=== PATIENT | female | born 1990 | race Caucasian/White ===

== ENCOUNTER 2021-04-28 13:18 | Outpatient (CLI) | payer BC, SELFPAY ==
[2021-04-28 14:13] LABS: hCG Titer Quant., Serum 401 mIU/mL (1-3)
== END 2021-04-28 23:59 | disposition short-term general hospital (02) ==
LOC: PAVLAB 13:23
PROVIDERS: PCP Nurse Practitioner Primary Care; Referring Provider Obstetrics & Gynecology; Visit Provider Obstetrics & Gynecology
DX: N91.2 Amenorrhea, unspecified (principal)
CPT/HCPCS: 36415; 84702; 86850; 86900; 86901

== ENCOUNTER 2021-04-30 11:48 | Outpatient (CLI) | payer BC, SELFPAY ==
[2021-04-30 12:58] LABS: hCG Titer Quant., Serum 836 mIU/mL (1-3)
== END 2021-04-30 23:59 | disposition short-term general hospital (02) ==
LOC: LAB 11:49
PROVIDERS: PCP Nurse Practitioner Primary Care; Referring Provider Obstetrics & Gynecology; Visit Provider Obstetrics & Gynecology
DX: N91.2 Amenorrhea, unspecified (principal)
CPT/HCPCS: 36415; 84702

== ENCOUNTER 2021-05-03 10:12 | Day surgery (SDC) | payer BC, SELFPAY ==
[2021-05-03] VITALS (7 sets, daily range): BP systolic 115–137; BP diastolic 56–96; PULSE 74–107; RESP 16–18; TEMP 35.8–36.4; O2SAT 91–100
--- NOTE | 2021-05-03 10:29 | US_ITS ---
STUDY: FIRST TRIMESTER OBSTETRICAL ULTRASOUND REASON FOR EXAM: Female, 30 years old LT SIDED PAIN -- QUANT 836 - DRAWN LAST WEEK. REPEATED TODAY -NOT RESULTED AT THIS TIME LMP: 03/17/2021. TECHNIQUE: Transvaginal TECHNICAL QUALITY: Adequate. PRIOR ULTRASOUND: None. FINDINGS: There is no demonstrated intrauterine gestational sac. There is no demonstrated yolk sac. The placenta is non-visualized. There is no demonstrated embryo ( pole). The estimated gestation age (EGA) by LMP is 6 weeks, 5 days. The estimated date of delivery (PLACIDO) by LMP is 12/22/2021.. The uterus measures 6.5 cm x 5 cm x 4.3 cm. There is no demonstrated uterine fibroid. The cervix is closed. The right ovary measures 3.4 cm x 1.7 cm x 3.8 cm. A dominant follicle is seen measuring 1.8 cm x 1.8 cm x 1.7 cm. There is no visualized right adnexal mass or complex lesion. The left ovary measures 3.4 cm x 3.1 cm x 2.6 cm. Vision 1.8 cm x 2 cm x 1.7 cm ringlike cyst with thick margins. An ectopic should be ruled out. There is no visualized left adnexal mass or complex lesion. There is no fluid in the cul de sac. US/Transvaginal w/Preg US IMPRESSION: No intrauterine gestation is seen. Findings suggestive of a left ectopic . Electronically Signed: Moisés Munoz MD at 11:13 EST , Service support ,
[2021-05-03 11:20] LABS: hCG Titer Quant., Serum 974 mIU/mL (1-3)
[2021-05-03] MEDS: Lactated Ringers 1,000 ML 100 ML IV ×2 (13:35→15:15)
[2021-05-03 13:38] LABS: Hematocrit 39.8 % (37-47); Hemoglobin 12.6 g/dL (12.0-15.0); Mean Corp Hgb Conc 31.7 g/dL (32-36); Mean Corpuscular Hgb 28.2 pg (27.0-32.0); Mean Platelet Vol. 9.5 fl (6.2-12.0); Platelet Count 262 K/mm3 (150-450); RBC Distribution Width CV 12.3 % (11.6-14.6); RBC Distribution Width SD 40.2 fl (35.1-43.9); Red Blood Count 4.47 M/mm3 (4.2-5.4); White Blood Count 9.6 K/mm3 (4.4-11.0)
--- NOTE | 2021-05-03 14:00 | FAL_PTH ---
PATIENT: TRES QUINONEZ LOC: [facility] [place] U#:[id number] AGE/SX: 30/F ROOM: RE05/03/[address]: Dr. Ade Lainez MD : 1990 BED: DIS: 05/03/2021 SPEC #: [id number] RECD: 05/04/21 09:37 STATUS: JON DAVID #: [id number] SEBASTIAN: 05/03/21 14:[address]: Ade Lainez DEPT: SURGICAL PATHOLOGY RECD BY: Xavier Anderson ENTERED: 05/04/21 11:06 SP TYPE: ECTOPIC OTHR DR: Sonia Green, ALISIA Tissues: ECTOPIC PREG Procedures: Surgery Specimen Level IV HEADER OPERATION: Laparoscopic removal ectopic PRE-OP DIAGNOSIS: Ectopic TISSUE SUBMITTED: Left fallopian tube and ectopic MICROSCOPIC DIAGNOSIS Fallopian tube and ectopic, salpingectomy: Fallopian tube and blood clots with decidua and immature chorionic villi (ectopic ). JEANETTE:judith 05/05/2021 MICROSCOPIC DESCRIPTION Slides are reviewed. GROSS DESCRIPTION Received in fixative is one container labeled with the patient's name and designated left fallopian tube and ectopic. The specimen consists of a fallopian tube in two pieces measuring 7.5 cm in length and up to 1 cm in diameter. The fimbrial end is identified. The portion of fallopian tube proximal to the fimbrial end is dilated and congested and measures up to 1.5 cm in greatest dimension. Also present in the container are multiple blood clots measuring in aggregate 3 x 1.5 x 0.5 cm. The entire specimen is submitted in four cassettes. Cassette 4 contains the blood clots. / JEANETTE:judith 05/04/2021 TC:5 CPT: 36158
--- NOTE | 2021-05-03 14:48 | PCM.HP.STD ---
HPI - General HPI Narrative TRES QUINONEZ, is a 30 F who presents with early bleeding and abnormally rising quants. on ultrasound evaluation there is suspicion for ectopic , no free fluid. patient has some nausea and vomiting no fevers, pain is on the lower left side, intermittent cramping and sharp shooting not relieved with OTC meds. PFSH Home Medications prenat vit-iron [id number] [Prena-Cap] 1 cap PO DAILY 05/03/21 [History Last Taken Unknown] Allergy/AdvReac Type Severity Reaction Status Date / Time acetaminophen Allergy Mild unknown Verified 05/03/21 13:06 [From Darvocet-N] azithromycin Allergy Mild Vomiting Verified 05/03/21 13:06 [From Zithromax Z-Guzman] propoxyphene Allergy Mild unknown Verified 05/03/21 13:06 [From Darvocet-N] sulfacetamide Allergy Unknown Other Verified 05/03/21 13:06 Family History (Updated 04/08/21 @ 09:58 by Itzel Bess) Grandmother Colon cancer Diabetes x2 Grandfather Cancer Other Endometriosis Epilepsy Surgical History H/O wrist surgery History of surgery on left wrist S/P arthroscopy of left shoulder Social History (Updated 04/08/21 @ 09:58 by Itzel Bess) household members: spouse Smoking Status: Never smoker second hand exposure: No alcohol intake: current alcohol intake frequency: holidays/special occasions only substance use type: does not use caffeine: Yes what type of physical activity do you participate in: walking seatbelt use: always do you feel safe at home: Yes additional social history: -Tristin URENA Review of Systems ROS Unobtainable: due to mental status and other Constitutional Constitutional: Reports systems reviewed and no addt'l complaints, except as documented; Denies as per HPI, change in weight, fatigue, fever(s), malaise, weakness or other Eyes Eyes: Reports systems reviewed and no addt'l complaints, except as documented; Denies as per HPI, change in vision or other ENT HEENT: Reports as per HPI and dizziness; Denies dry mouth, headache(s), loss taste/smell, nasal congestion, nasal discharge, neck pain, sore throat or other Respiratory/Chest Respiratory/Chest: Reports systems reviewed and no addt'l complaints, except as documented Gastrointestinal Gastrointestinal: Reports systems reviewed and no addt'l complaints, except as documented and nausea; Denies vomiting Musculoskeletal Musculoskeletal: Reports systems reviewed and no addt'l complaints, except as documented; Denies back pain or joint pain Neurologic Neurologic: Reports systems reviewed and no addt'l complaints, except as documented Psychiatric Psychiatric: Reports systems reviewed and no addt'l complaints, except as documented Endocrine Endocrinology: Reports systems reviewed and no addt'l complaints, except as documented Hematologic/Lymphatic Hematologic/Lymphatic: Reports systems reviewed and no addt'l complaints, except as documented Vital Signs Vital Signs Vital Signs: 05/03/21 13:27 Temperature 97.1 F L Temperature Source Temporal Pulse Rate 107 H Respiratory Rate 17 Respiratory Pattern Normal Blood Pressure 137/96 H Blood Pressure Mean 109 Blood Pressure Source Monitor Blood Pressure Position Semi-Fowlers Blood Pressure Location Left Arm Pulse Ox 100 Oxygen Delivery Method Room Air Weight Weight: 267 lb 6.731 oz Physical Exam Const alert, oriented x3 and no apparent distress HEENT normocephalic Head and Scalp: atraumatic Eyes EOMs intact bilaterally and conjunctivae normal Neck full ROM, no lymphadenopathy, supple and thyroid normal General: trachea midline Lymph Lymphatic: no lymphadenopathy noted Resp normal respiratory effort, no retractions, no use of accessory muscles and clear to auscultation bilaterally Cardio regular rhythm GI normal to inspection, nondistended, normoactive bowel sounds, soft to palpation, non-distended and no masses Inspection: Negative for abdominal distention Palpation: tender Back/Spine no CVA tenderness Extremity normal to inspection Skin no rashes or lesions noted Neuro moves all extremities and deep tendon reflexes 2+ bilaterally Motor Exam: clonus absent Psych mental status grossly normal Results Lab / Micro Data Result Diagrams: 05/03/21 13:24 Labs: Laboratory Results - last 24 hr 05/03/21 10:25: HCG, Quant 974 H 05/03/21 13:24: WBC 9.6, RBC 4.47, Hgb 12.6, Hct 39.8, MCV 89.0, MCH 28.2, MCHC 31.7 L, RDW Std Deviation 40.2, RDW Coeff of Anju 12.3, Plt Count 262, MPV 9.5 05/03/21 13:24: Blood Type A POSITIVE, Antibody Screen NEGATIVE Micro: Microbiology 05/03/21 13:15 Nasal Secretion SARS-CoV-2 Antigen (Rapid) - Final Radiology Impression Obstetrics Ultrasound 05/03/21 10:29 IMPRESSION: No intrauterine gestation is seen. Findings suggestive of a left ectopic . Electronically Signed: Moisés Munoz MD at 11:13 EST , Service support , Assessment & Plan Assessment/Plan (1) Ectopic : PLAN: After discussing the patient's diagnosis and treatment plan options, patient wishes to proceed with surgical management. I have discussed with the patient the risks, benefits, and alternatives of the procedure which include but are not limited to risks of anesthesia, bleeding, infection, possible damage to bowel, bladder, or surrounding vasculature which could lead to additional surgery to evaluate any complications. Patient agrees to procedure and wishes to proceed. ACOG/uptodate references given for additional information regarding procedure. Charges/Coding Visit Charges Office Visits / Consults: 35456 OV L5 Est (modifier for seen same day and decision made for surgery same day.)
--- NOTE | 2021-05-03 14:51 | OP.PCM_ITS ---
Problems Associated Problem List Diagnoses (1) Ectopic : Report of Operation Pre-Operative Diagnosis: see problem list Post-Operative Diagnosis: same Surgery/Procedure Performed:: laparoscopic left salpingectomy Description of Surgical Findings:: ruptured ectopic Type of Anesthesia: General and Local Specimen's removed: tube and ectopic Drains: none Estimated Blood Loss (mL): 150 Fluids Replaced: crystalloid Description of Procedure: Patient was taken in the operating room and was placed under general anesthesia was prepped and draped in normal sterile fashion in the dorsal lithotomy position. Bladder was drained of clear urine and SCDs were on preoperatively. Uterus was sounded and a uterine manipulator was placed after dilating. Attention was then paid to the abdominal portion of the procedure and the umbilicus was elevated with towel clamps and injected with Marcaine and after a 12 mm incision was made and the Veress needle was entered into the abdomen confirmed to be intra-abdominal with a low opening pressure of less than 5 mmHg. Abdomen was insufflated with CO2 gas and a 5 mm optical trocar was placed under direct visualization. A 5 mm port was placed in the right and left lower quadrant ports under direct visualization. Uterus was well visualized and there is noted to be a left ruptured ectopic coming from the left fallopian tube. Blood and clot were seen in the cul-de-sac. salpingostomy afte r injecting with vasopressin diluted was attempted but due to ectopic remnant in the tube and the abnormal appearance of the tube, salpingectomy was decided. Fallopian tube was elevated and mesosalpinx transected and abnormal portion of the fallopian tube and were removed without complication and then placed in a bag and removed through the left 5 mm port site. Liver and upper abdomen were visualized notably within normal limits and no other gross abnormalities were seen in the abdomen. All instruments removed from the abdomen after gas was desufflated. All port sites were closed with 3-0 Monocryl Steri's and op sites were applied. All instruments removed from the vagina and patient was awoken and taken recovery in stable condition. Grafts/Implants Used: none Complications none Admit VTE Documentation VTE Present on Admission: No VTE Mechan Device Prophylaxis: SCD's Procedures Urinary/Genital [id number]: 91243 Treat ectopic lapro w/ salpingectomy
--- NOTE | 2021-05-03 14:54 | DCINST_ITS ---
Discharge Instructions Diet Discharge Diet: No restrictions Activity Discharge Activity: Return to Normal Activity, May Not Drive (for 2 weeks or while taking narcotic pain meds.), May Shower and May Take a Tub Bath (in 7 days) May resume sexual activity in: 1 week Weight Bearing Status: Full weight bearing Dressing / Incision Call your doctor if your incision/area has: Continuous Slow Oozing, Sudden Increased Bleeding, Increased Pain/ Swelling, Increased Redness and Foul Smelling Discharge Call your doctor if you observe: Fever of 101 or Higher, Using more than 1 pad per hour, Shortness of breath, Chest pain and Uncontrolled pain Suture Line Care: Avoid Pulling/Pushing and Avoid Pinching/Bending Remove Dressing in: 1 week (if present) Cleanse incision/area with: Soap & Water and Keep Dressing Clean & Dry Follow Up Care When: Call to make an appointment with your doctor for a fu/incision check in 1- 2 weeks. Test Results: Test results from this visit will be discussed in further detail at your follow-up appointment, if applicable. Discharge Plan Admission Attending Provider: Ade Lainez Primary Care Provider: Sonia Green NP Discharge Orders/Prescriptions Prescriptions: New oxycodone-acetaminophen [Percocet] 5-325 mg tablet 1 tab PO Q6H PRN (Reason: pain) 7 Days Qty: 20 RF: 0 naproxen [naproxen] 500 MG tablet 500 mg PO BID PRN PRN (Reason: Pain) Qty: 30 RF: 1 No Action Prena-Cap 95-1-50 mg Capsule 1 cap PO DAILY RF: 0 Referrals / Follow Up: Sonia Green NP, SENIOR PROCUREMENT MANAGER-C [Primary Care Provider] -
[2021-05-03] MEDS: Bupivacaine 0.25% 30 ML Vial (15:00)
[2021-05-03] MEDS: Vasopressin 20 UNITS/ML Vial (15:30)
== END 2021-05-03 23:59 | disposition home or self-care (01) ==
LOC: OPUS 12:11 → SDC 12:16 → AC 12:46
PROVIDERS: PCP Nurse Practitioner Primary Care; Referring Provider Obstetrics & Gynecology; Visit Provider Obstetrics & Gynecology
PROC: 10T24ZZ Resection of Products of Conception, Ectopic, Percutaneous Endoscopic Approach (ICD-10-PCS; CPT 59150; principal; 2021-05-03 13:45)
DX: O00.102 Left tubal pregnancy without intrauterine pregnancy (principal)
CPT/HCPCS: 59151; 00840; 36415; 76817; 84702; 85027; 86850; 86900; 86901; 87426; 88305; J7120; J2405; Q9968

== ENCOUNTER → 2021-10-31 | Outpatient (CLI) | payer BC, SELFPAY ==
[2021-10-31 11:55] LABS: hCG Titer Quant., Serum 12 mIU/mL (1-3)
== END | disposition home or self-care (01) ==
LOC: PAVLAB 11:22
PROVIDERS: PCP Nurse Practitioner Primary Care; Referring Provider Obstetrics & Gynecology; Visit Provider Obstetrics & Gynecology
DX: O36.80X0 Pregnancy with inconclusive fetal viability, not applicable or unspecified (principal); Z3A.00 Weeks of gestation of pregnancy not specified
CPT/HCPCS: 36415; 84702

== ENCOUNTER → 2021-11-02 | Outpatient (CLI) | payer BC, SELFPAY ==
[2021-11-02 12:21] LABS: hCG Titer Quant., Serum 23 mIU/mL (1-3)
== END | disposition home or self-care (01) ==
LOC: PAVLAB 11:33
PROVIDERS: PCP Nurse Practitioner Primary Care; Referring Provider Obstetrics & Gynecology; Visit Provider Obstetrics & Gynecology
DX: N91.2 Amenorrhea, unspecified (principal)
CPT/HCPCS: 36415; 84702

== ENCOUNTER → 2021-11-04 | Outpatient (CLI) | payer BC, SELFPAY ==
[2021-11-04 16:33] LABS: hCG Titer Quant., Serum 29 mIU/mL (1-3)
== END | disposition home or self-care (01) ==
PROVIDERS: PCP Nurse Practitioner Primary Care; Referring Provider Obstetrics & Gynecology; Visit Provider Obstetrics & Gynecology
DX: N91.2 Amenorrhea, unspecified (principal)
CPT/HCPCS: 36415; 84702

== ENCOUNTER → 2021-11-07 | Outpatient (CLI) | payer BC, SELFPAY ==
[2021-11-07 10:36] LABS: hCG Titer Quant., Serum 64 mIU/mL (1-3)
== END | disposition home or self-care (01) ==
LOC: PAVLAB 09:42
PROVIDERS: PCP Nurse Practitioner Primary Care; Referring Provider Obstetrics & Gynecology; Visit Provider Obstetrics & Gynecology
DX: O36.80X0 Pregnancy with inconclusive fetal viability, not applicable or unspecified (principal); Z3A.00 Weeks of gestation of pregnancy not specified
CPT/HCPCS: 36415; 84702

== ENCOUNTER → 2021-11-09 | Outpatient (CLI) | payer BC, SELFPAY ==
[2021-11-09 11:52] LABS: hCG Titer Quant., Serum 124 mIU/mL (1-3)
== END | disposition home or self-care (01) ==
LOC: PAVLAB 10:57
PROVIDERS: PCP Nurse Practitioner Primary Care; Referring Provider Obstetrics & Gynecology; Visit Provider Obstetrics & Gynecology
DX: O36.80X0 Pregnancy with inconclusive fetal viability, not applicable or unspecified (principal); Z3A.00 Weeks of gestation of pregnancy not specified
CPT/HCPCS: 36415; 84702

== ENCOUNTER → 2021-11-15 | Outpatient (CLI) | payer BC, SELFPAY ==
[2021-11-15 11:05] LABS: hCG Titer Quant., Serum 61 mIU/mL (1-3)
== END | disposition home or self-care (01) ==
LOC: PAVLAB 09:47
PROVIDERS: PCP Nurse Practitioner Primary Care; Referring Provider Obstetrics & Gynecology; Visit Provider Obstetrics & Gynecology
DX: N92.0 Excessive and frequent menstruation with regular cycle (principal)
CPT/HCPCS: 36415; 84702

== ENCOUNTER → 2021-11-22 | Outpatient (CLI) | payer BC, SELFPAY ==
[2021-11-22 09:33] LABS: hCG Titer Quant., Serum 187 mIU/mL (1-3)
== END | disposition home or self-care (01) ==
LOC: PAVLAB 09:00
PROVIDERS: PCP Nurse Practitioner Primary Care; Referring Provider Obstetrics & Gynecology; Visit Provider Obstetrics & Gynecology
DX: O03.9 Complete or unspecified spontaneous abortion without complication (principal)
CPT/HCPCS: 36415; 84702

== ENCOUNTER 2021-11-23 13:52 | Emergency (ER) | payer BC, SELFPAY ==
[2021-11-23 13:53] VITALS: BP 159/100; PULSE 111; RESP 18; TEMP 36.4; O2SAT 100; BMI 46.0
[2021-11-23 14:07] VITALS: BMI 46.0
[2021-11-23 14:34] LABS: Absolute Lymphocyte Count 2.02 X10^3/uL (0.83-4.51); Absolute Neutrophil Count 6.7 X10^3/uL (2.0-7.7); Basophil# 0.06 X10^3/uL; Basophil% 0.6 % (0-1); Eosinophil# 0.08 X10^3/uL; Eosinophils% 0.8 % (0-5); Hematocrit 41.3 % (37-47); Hemoglobin 13.3 g/dL (12.0-15.0); Lymphocyte # 2.02 X10^3/ul (0.83-4.51); Mean Corp Hgb Conc 32.2 g/dL (32-36); Mean Corpuscular Hgb 28.2 pg (27.0-32.0); Mean Corpuscular Volume 87.5 fL (81-99); Mean Platelet Vol. 9.5 fl (6.2-12.0); Monocyte# 0.79 X10^3/uL; Monocyte% 8.2 % (0-10); NRBC Flagged by Analyzer 0 % (0-5); Neutrophil # 6.66 X10^3/uL (2.7-7.7); Neutrophil % 69.2 % (47-70); Platelet Count 284 K/mm3 (150-450); RBC Distribution Width CV 12.5 % (11.6-14.6); RBC Distribution Width SD 39.8 fl (35.1-43.9); Red Blood Count 4.72 M/mm3 (4.2-5.4); White Blood Count 9.6 K/mm3 (4.4-11.0)
[2021-11-23 14:53] LABS: ALB/GLOB Ratio 0.9 RATIO (0.9-2.4); AST(SGOT) 17 U/L (15-37); Alanine Aminotransfer ALT/SGPT 30 U/L (13-56); Albumin, Serum 3.2 g/dL (3.2-5.0); Alkaline Phosphatase 91 U/L (45-117); Anion Gap 5 (5-15); BUN 11 mg/dL (7-18); Calcium,Total 8.5 mg/dL (8.5-10.1); Chloride 110 mmol/L (98-107); Creatinine, Serum 0.73 mg/dL (0.55-1.02); EST Glomerular Filtration Rate 100 mL/min (>60); Est Glom Filt Rate - Afr Amer 121 mL/min (>60); Estimated Creatinine Clearance 103.24 ml/min; Globulin 3.7 g/dL (2.2-4.2); Glucose 90 mg/dL (74-106); Potassium 3.6 mmol/L (3.5-5.1); Protein, Total 6.9 g/dL (6.4-8.2); Sodium Level 138 mmol/L (136-145)
[2021-11-23 14:55] LABS: hCG Titer Quant., Serum 208 mIU/mL (1-3)
--- NOTE | 2021-11-23 15:04 | EDS_ITS ---
HPI HPI - Female History of Present Illness Chief Complaint: Female C/O Narrative Narrative: Patient presents with an ectopic . She has no abdominal pain she has no vaginal bleeding. She was found to be , saw her VERTICAL LATHE OPERATOR who ordered an ultrasound and a quant. Ultrasound shows a cystic region in the ovary consistent with an ectopic . Quant was mildly elevated. Patient has no fevers chills cough or congestion, she has no urinary symptoms she has no back pain. She does not feel lightheaded. PFSH PFSH Medical History History of ectopic Home Medications NK 11/23/21 [History Last Taken Unknown] Allergy/AdvReac Type Severity Reaction Status Date / Time azithromycin Allergy Mild Vomiting Verified 11/23/21 13:55 [From Zithromax Z-Guzman] propoxyphene Allergy Mild unknown Verified 11/23/21 13:55 [From Darvocet-N] sulfacetamide Allergy Unknown Other Verified 11/23/21 13:55 oxycodone AdvReac Unknown unknown Verified 11/23/21 13:55 Family History Grandmother Colon cancer Diabetes x2 Grandfather Cancer Other Endometriosis Epilepsy Surgical History H/O wrist surgery History of salpingectomy History of surgery on left wrist S/P arthroscopy of left shoulder Social History household members: spouse Smoking Status: Never smoker second hand exposure: No alcohol intake: current alcohol intake frequency: holidays/special occasions only substance use type: does not use caffeine: Yes what type of physical activity do you participate in: walking seatbelt use: always do you feel safe at home: Yes additional social history: -Tristin URENA ROS ED ROS Narrative Past medical history: Reviewed, she has prior ectopic Medications: Reviewed Social history: Noncontributory Review of systems: All systems negative except as indicated General: No fever Eyes: No visual changes ENT: No upper airway congestion, normal voice Neck: No neck pain Cardiovascular: No chest pain Respiratory: No shortness of breath or cough Gastrointestinal: No abdominal pain, nausea vomiting or diarrhea Genitourinary: No dysuria Musculoskeletal: Denies myalgias no difficulty with ambulation Skin: No rash Neurological: No memory loss, confusion or any focal weakness Psych: No recent behavioral changes Hematologic: No easy bleeding or easy bruising EXAM Physical Exam Narrative Exam Narrative: Physical exam General: Well nourished, Well developed, No Acute Distress Head: Normocephalic, Atraumatic Eyes: Conjunctiva not pale ENT: Moist mucous membranes Neck: Supple, Nontender, No lymphadenopathy Cardiovascular: Regular rate, Regular rhythm Respiratory: No distress, CTA bilaterally Abdomen: Soft, Nontender, Nondistended : Deferred Back: Nontender, Normal Inspection. Negative for: CVA tenderness Extremities: Nontender, No edema Skin: Normal color, No rash Neurological: Alert, Normal Strength, Normal Sensation Psychological: Normal affect Const Vital Signs: 11/23/21 13:53 Temperature 97.6 F L Temperature Source Temporal Pulse Rate 111 H Respiratory Rate 18 Blood Pressure 159/100 H Blood Pressure Mean 119 Pulse Ox 100 Oxygen Delivery Method Room Air MDM MDM MDM Narrative Medical decision making narrative: Patient's work-up is unremarkable. She appears well, her hCG is slightly up but probably not as much as is expected if this was an intrauterine . She does have an ultrasound which is likely an ectopic with no intrauterine . I do believe that because of this ectopic there is a risk to the mother thus methotrexate is indicated. Patient received IM methotrexate per protocol. This was given by me. Lab Data Labs: Laboratory Results - last 24 hr 11/23/21 11/23/21 11/23/21 14:20 14:20 14:20 WBC 9.6 RBC 4.72 Hgb 13.3 Hct 41.3 MCV 87.5 MCH 28.2 MCHC 32.2 RDW Std Deviation 39.8 RDW Coeff of Anju 12.5 Plt Count 284 MPV 9.5 Immature Gran % (Auto) 0.200 Neut % (Auto) 69.2 Lymph % (Auto) 21.0 [place] % (Auto) 8.2 Eos % (Auto) 0.8 Baso % (Auto) 0.6 Absolute Neuts (auto) 6.7 Absolute Lymphs (auto) 2.02 Nucleated RBC % 0 Sodium 138 Potassium 3.6 Chloride 110 H Carbon Dioxide 23.0 Anion Gap 5 BUN 11 Creatinine 0.73 Estim Creat Clear Calc 103.24 Est GFR (MDRD) Af Amer 121 Est GFR (MDRD) Non-Af 100 BUN/Creatinine Ratio 15.0 Glucose 90 Calcium 8.5 Total Bilirubin 0.40 AST 17 ALT 30 Alkaline Phosphatase 91 Total Protein 6.9 Albumin 3.2 Globulin 3.7 Albumin/Globulin Ratio 0.9 HCG, Quant Blood Type A POSITIVE Antibody Screen NEGATIVE 11/23/21 14:20 WBC RBC Hgb Hct MCV MCH MCHC RDW Std Deviation RDW Coeff of Anju Plt Count MPV Immature Gran % (Auto) Neut % (Auto) Lymph % (Auto) [place] % (Auto) Eos % (Auto) Baso % (Auto) Absolute Neuts (auto) Absolute Lymphs (auto) Nucleated RBC % Sodium Potassium Chloride Carbon Dioxide Anion Gap BUN Creatinine Estim Creat Clear Calc Est GFR (MDRD) Af Amer Est GFR (MDRD) Non-Af BUN/Creatinine Ratio Glucose Calcium Total Bilirubin AST ALT Alkaline Phosphatase Total Protein Albumin Globulin Albumin/Globulin Ratio HCG, Quant 208 H Blood Type Antibody Screen Discharge Plan Triage Chief Complaint: Female C/O Other Complaint: Meds Only ED Provider: Wayne Sewell Dx/Rx/DC Orders Clinical Impression: Ectopic , Amenorrhea Instructions: ED Methotrexate for Ectopic ... Prescriptions: No Action NK Primary Care Provider: Sonia Green NP Referrals: Alice Warner DO [Med Staff - Active Staff] - 2 Days Sonia Green NP, SNATH HANDLE ASSEMBLER-C [Primary Care Provider] - Disposition Disposition: Home, Self Care
[2021-11-23 15:59] VITALS: PULSE 98; RESP 17; O2SAT 99
== END 2021-11-23 16:00 | disposition home or self-care (01) ==
PROVIDERS: Emergency Provider Emergency Medicine; PCP Nurse Practitioner Primary Care; Visit Provider Emergency Medicine
DX: O00.209 Unspecified ovarian pregnancy without intrauterine pregnancy (principal)
CPT/HCPCS: 80053; 84702; 85025; 86850; 86900; 86901; 96372; 99283; J9250

== ENCOUNTER → 2021-11-23 | Outpatient (CLI) | payer BC, SELFPAY ==
--- NOTE | 2021-11-23 12:06 | US_ITS ---
INDICATION: rule out ectopic EXAMINATION: Ultrasound US OB Transvaginal TECHNIQUE: Transabdominal pelvic ultrasound was performed. Grayscale, spectral waveform, and color flow Doppler evaluation of the adnexa. COMPARISON: None. Expected gestational age by LMP 7 weeks and 6 days. Expected date of delivery by LMP 07/06/2022. Beta-hC FINDINGS: UTERUS: The uterus demonstrates unremarkable echogenicity unremarkable vascularity, unremarkable size shape and configuration, no evidence of uterine masses is seen. The endometrial stripe is unremarkable, no evidence of endometrial masses is seen. No evidence of endometrial gestation is visualized. The uterus measures 8.7 x 4.5 x 4.1 cm. The endometrial stripe measures 0.9 cm. The right ovary demonstrates unremarkable echogenicity. A thick walled cyst is visualized within the right ovary measuring 1.8 x 1.6 x 1.6 cm, circumferential vascularity visualized surrounding this cyst suspicious for ectopic . There is a 1.8 x 2.0 x 1.5 cm simple cyst visualized within the right ovary. The left ovary demonstrates unremarkable echogenicity unremarkable vascularity, complex heterogeneous area is visualized in the left ovary measuring 0.9 x 1.2 x 1.0 cm that is difficult to evaluate. The left ovary measures 3.6 x 2.2 x 1.9 cm. No evidence of free fluid within the pelvis. US/Transvaginal w/Preg US IMPRESSION: 1.8 cm cystic lesion visualized in the right ovary demonstrating circumferential increased vascularity suggestive of Ectopic . Please note that there is no evidence of strictures within the lesion, and there is no evidence of adjacent free fluid also noted clinically there is no significant pain on transvaginal evaluation of the right adnexa. Electronically Signed: Mann Ewing MD at 13:54 EDT ,
== END | disposition home or self-care (01) ==
LOC: US 11:31
PROVIDERS: PCP Nurse Practitioner Primary Care; Referring Provider Nurse Practitioner Women's Health; Visit Provider Nurse Practitioner Women's Health
DX: O03.9 Complete or unspecified spontaneous abortion without complication (principal)
CPT/HCPCS: 76817

== ENCOUNTER → 2021-11-27 | Outpatient (CLI) | payer BC, SELFPAY ==
[2021-11-27 10:46] LABS: hCG Titer Quant., Serum 69 mIU/mL (1-3)
== END | disposition home or self-care (01) ==
LOC: LAB 10:01
PROVIDERS: PCP Nurse Practitioner Primary Care; Visit Provider Obstetrics & Gynecology
DX: O00.90 Unspecified ectopic pregnancy without intrauterine pregnancy (principal)
CPT/HCPCS: 84702

== ENCOUNTER → 2021-11-30 | Outpatient (CLI) | payer BC, SELFPAY ==
--- NOTE | 2021-11-30 13:56 | US_ITS ---
STUDY: ULTRASOUND TRANSVAGINAL CLINICAL: Female, 31 years old. Abdominal pain, recent history of ectopic with METHOTREXATE therapy TECHNIQUE: Transvaginal COMPARISON: 11/23/2021 FINDINGS: Normal uterine size measuring 9.1 cm in maximal craniocaudal dimension. There are no myometrial masses. Normal endometrial thickness measuring 5.2 mm. There are no endometrial masses, and there is no fluid in the endometrial cavity. Normal uterine cervix. Normal right ovary, measuring 3.2 x 3 x 1.9 cm. There is a stable 1 x 1 x 1 cm complex nodule with minimal peripheral vascularity, there is a stable 2.1 x 2.0 x 1.6 cm cyst. Normal left ovary, measuring 3.5 x 2 x 2 cm. There are multiple follicles without a dominant cyst. There is no free fluid in the pelvis. US/Transvaginal Non- IMPRESSION: Previously noted 1.8 cm complex cystic lesion with peripheral vascularity noted on the previous study has decreased in size to 1 x 1 x 1 cm. Vascularity has significantly diminished. Findings consistent with a resolving ectopic . Another 7-10 day follow-up ultrasound is recommended to assess for complete resolution. Stable simple 2.1 x 2.0 x 1.6 cm right ovarian cyst Sonographically normal uterus and left ovary, no demonstrated free fluid Electronically Signed: Anibal Khoury MD at 8:23 EDT ,
[2021-11-30 14:30] LABS: hCG Titer Quant., Serum 38 mIU/mL (1-3)
== END | disposition home or self-care (01) ==
LOC: US 13:56
PROVIDERS: Obstetrics & Gynecology; PCP Nurse Practitioner Primary Care; Referring Provider Obstetrics & Gynecology; Visit Provider Obstetrics & Gynecology
DX: O00.90 Unspecified ectopic pregnancy without intrauterine pregnancy (principal)
CPT/HCPCS: 36415; 76830; 84702

== ENCOUNTER → 2021-12-02 | Outpatient (CLI) | payer BC, SELFPAY ==
[2021-12-02 17:15] LABS: hCG Titer Quant., Serum 45 mIU/mL (1-3)
== END | disposition home or self-care (01) ==
LOC: LAB 15:15
PROVIDERS: Nurse Practitioner Women's Health; PCP Nurse Practitioner Primary Care; Visit Provider Obstetrics & Gynecology
DX: O00.90 Unspecified ectopic pregnancy without intrauterine pregnancy (principal)
CPT/HCPCS: 36415; 84702

== ENCOUNTER 2021-12-05 08:54 | Emergency (ER) | payer BC, SELFPAY ==
[2021-12-05 08:54] VITALS: BP 122/85; PULSE 86; RESP 16; TEMP 36.4; O2SAT 98; BMI 44.9
--- NOTE | 2021-12-05 09:03 | US_ITS ---
STUDY: FIRST TRIMESTER OBSTETRICAL ULTRASOUND REASON FOR EXAM: Female, 31 years old Ectopic LMP: 09/29/2021 TECHNIQUE: Transvaginal TECHNICAL QUALITY: Adequate. PRIOR ULTRASOUND: None. FINDINGS: There is no demonstrated intrauterine gestational sac.. The uterus measures 7.1 x 4.0 x 4.9 cm. There is no demonstrated uterine fibroid. The cervix is closed. The right ovary measures 3.2 x 2.4 x 1.8 cm. There is no right ovarian cyst. There is no change in the 2 cm oval anechoic mass with increased through transmission within the right adnexa consistent with a simple cyst. Differential diagnosis includes ectopic or ovarian cyst. The left ovary measures 2.1 x 2.0 x 2.3 cm. There is no left ovarian cyst. There is no visualized left adnexal mass or complex lesion. There is no fluid in the cul de sac. US/Transvaginal w/Preg US IMPRESSION: No change in the 2 cm simple cyst in the right adnexa consistent with ectopic or par ovarian cyst. Electronically Signed: Jeevan Sims MD at 10:18 EDT ,
--- NOTE | 2021-12-05 09:08 | ED.VIS.FEGU ---
HPI HPI - Female History of Present Illness Chief Complaint: Narrative Narrative: 31-year-old female, G2, P0 diagnosed with ectopic presents for continued treatment for ectopic on the right side. She states she is having mild vaginal bleeding/spotting but denies any chest pain or shortness of breath, no increased pelvic pain. She was seen in the emergency department last week and received a dose of methotrexate. She states that on Sunday, 3 days ago, she had laboratories drawn. Her beta hCG did increase slightly from the 30s to the 40s and she was called by her CARTOGRAPHY TEACHER, Dr. Lainez, to have repeat ultrasound and receive another dose of methotrexate. [facility] Medical History History of ectopic Home Medications NK 11/23/21 [History Last Taken Unknown] Allergy/AdvReac Type Severity Reaction Status Date / Time azithromycin Allergy Mild Vomiting Verified 12/05/21 08:57 [From Zithromax Z-Guzman] propoxyphene Allergy Mild unknown Verified 12/05/21 08:57 [From Darvocet-N] sulfacetamide Allergy Unknown Other Verified 12/05/21 08:57 oxycodone AdvReac Unknown unknown Verified 12/05/21 08:57 Family History Grandmother Colon cancer Diabetes x2 Grandfather Cancer Other Endometriosis Epilepsy Surgical History H/O wrist surgery History of salpingectomy History of surgery on left wrist S/P arthroscopy of left shoulder Social History household members: spouse Smoking Status: Never smoker second hand exposure: No alcohol intake: current alcohol intake frequency: holidays/special occasions only substance use type: does not use caffeine: Yes what type of physical activity do you participate in: walking seatbelt use: always do you feel safe at home: Yes additional social history: -Tristin URENA ROS ED ROS Narrative Constitutional: No fever, no chills. HEENT: No sore throat. No neck pain. No loss of vision. No rhinorrhea. Cardiovascular: No chest pain. No palpitations. No pedal edema. Respiratory: No cough, no shortness of breath. Abdominal: No abdominal pain. No nausea. No vomiting. Genitourinary: No dysuria. No hematuria. Positive vaginal bleeding/spotting with minimal cramping of pelvis. Musculoskeletal: No myalgias. No arthralgias. Neurologic: No headaches. No dizziness. No lightheadedness. Skin: No rash. No change in color. Psychiatric: No depression. No anxiety. EXAM Physical Exam Narrative Exam Narrative: Afebrile. Vital signs noted. HEENT: Normocephalic. Atraumatic. PERRL, EOMI. Neck soft and supple. No point tenderness or step off. Cardiovascular: Regular rate and rhythm. No murmurs, rubs, or gallops appreciated. Respiratory: No tachypnea. Lungs clear to auscultation bilaterally. Gastrointestinal: Abdomen soft, nontender, with normoactive bowel sounds. No rebound or guarding. Neurological: Awake. Alert. Nonfocal, nonlateralizing. Genitourinary: Pelvic exam deferred/declined by patient. Skin: No rash. Normal color. No pallor. Musculoskeletal: No pedal edema. Full range of motion extremities. Const Vital Signs: 12/05/21 08:54 Temperature 97.6 F L Temperature Source Temporal Pulse Rate 86 Respiratory Rate 16 Blood Pressure 122/85 H Blood Pressure Mean 97 Pulse Ox 98 Oxygen Delivery Method Room Air MDM MDM MDM Narrative Medical decision making narrative: I reviewed her prior EMR. Her beta hCG did increase from 38-45. I will repeat the ultrasound and obtain a beta hCG quantitative measurement. She knows her blood type is a positive. Her ultrasound shows no change in the 2 cm simple cyst in the right adnexa consistent with either ectopic or Paraovarian cyst. Her beta hCG has returned at 37. I discussed the patient with Dr. Ade Lainez, who would like methotrexate still administered because she had a rise previously and her hCG by more than 15%. She was administered methotrexate per protocol by me. She will have another beta hCG drawn in 4 days. She will follow-up with CARTOGRAPHY TEACHER. I feel she can be discharged safely home with follow-up. Return instructions to the emergency department were reviewed. Disposition is discharged home in stable condition. Lab Data Attestation: I reviewed the patient's lab results. Labs: Laboratory Results - last 24 hr 12/05/21 09:17 HCG, Quant 37 H Radiography Diagnostic Testing: Clinical Impression(s) from Imaging Studies Obstetrics Ultrasound 12/05/21 09:03 IMPRESSION: No change in the 2 cm simple cyst in the right adnexa consistent with ectopic or par ovarian cyst. Electronically Signed: Jeevan Sims MD at 10:18 EDT , Discharge Plan Triage Chief Complaint: ED Provider: Avelino Valencia Dx/Rx/DC Orders Clinical Impression: Ectopic , Prior methotrexate therapy Instructions: Ectopic , ED Methotrexate for Ectopic ... Prescriptions: No Action NK Other Ambulatory Orders: HCG BETA-SUBUNIT QUANT. (Routine) Timeframe: [id number] Facility: [facility] - Location: Laboratory Ordered By: Avelino Valencia Primary Care Provider: Sonia Green NP Referrals: Ade Lainez MD [Med Staff - Active Staff] - 12/09/21 Sonia Green NP, MACHINE III COREMAKER-C [Primary Care Provider] - Disposition Disposition: Home, Self Care
[2021-12-05 10:54] LABS: hCG Titer Quant., Serum 37 mIU/mL (1-3)
[2021-12-05 12:27] VITALS: BP 118/67; PULSE 74; RESP 16; O2SAT 99
== END 2021-12-05 12:28 | disposition home or self-care (01) ==
PROVIDERS: Emergency Provider Emergency Medicine; PCP Nurse Practitioner Primary Care; Visit Provider Emergency Medicine
DX: O00.90 Unspecified ectopic pregnancy without intrauterine pregnancy (principal)
CPT/HCPCS: 76817; 84702; 96372; 99283; A4216; J9250

== ENCOUNTER → 2021-12-09 | Outpatient (CLI) | payer BC, SELFPAY ==
[2021-12-09 10:52] LABS: hCG Titer Quant., Serum 16 mIU/mL (1-3)
== END | disposition home or self-care (01) ==
LOC: LAB 09:12
PROVIDERS: PCP Nurse Practitioner Primary Care; Referring Provider Obstetrics & Gynecology; Visit Provider Obstetrics & Gynecology
DX: O00.90 Unspecified ectopic pregnancy without intrauterine pregnancy (principal)
CPT/HCPCS: 36415; 84702

== ENCOUNTER → 2021-12-12 | Outpatient (CLI) | payer BC, SELFPAY ==
[2021-12-12 09:11] LABS: hCG Titer Quant., Serum 3 mIU/mL (1-3)
== END | disposition home or self-care (01) ==
LOC: PAVLAB 08:12
PROVIDERS: PCP Nurse Practitioner Primary Care; Referring Provider Obstetrics & Gynecology; Visit Provider Obstetrics & Gynecology
DX: O00.90 Unspecified ectopic pregnancy without intrauterine pregnancy (principal)
CPT/HCPCS: 36415; 84702

== ENCOUNTER → 2022-02-09 | Outpatient (CLI) | payer BC, SELFPAY ==
--- NOTE | 2022-02-09 07:48 | RAD_ITS ---
STUDY: HYSTEROSALPINGOGRAM REASON FOR EXAM: Female, 31 years old. Infertility RADIATION DOSAGE (If Supplied By Facility): CTDIvol = ( ) mGy, DLP = ( ) mGycm. Individualized dose optimization techniques were used for this CT.? FLUOROSCOPY TIME (if supplied): ( 2:17 ) minutes/seconds TECHNIQUE: Exam performed by Dr. Warner COMPARISON: None. FINDINGS: The cervix was cannulized by Dr. Warner, who injected contrast into the endometrium in a retrograde manner. Fluoroscopy provided by Dr. Khoury There is normal filling of the endometrium with contrast. There is no contour irregularities to suspect impingement upon the endometrium. However, there was no flow of contrast into either fallopian tube. Findings suggest stenosis at the ostia of the fallopian tubes and uterus. RAD/Salpingogram IMPRESSION: Normal-appearing endometrium Neither fallopian tube filled with contrast suggesting stenosis or occlusion at the ostia Electronically Signed: Anibal Khoury MD at 8:54 EDT ,
--- NOTE | 2022-02-09 08:41 | OP.PCM_ITS ---
Operative Report Date of Procedure: 02/09/22 Preop diagnosis: Infertility Postop diagnosis: Infertility, bilateral tubal blockage Procedure: Hysterosalpingogram Surgeon: Alice Warner Do Implantable devices: None Complications: None Findings: Bilateral tubal patency and normal uterine cavity Operative details: Patient was taken to the x-ray room and was placed on the x- ray table and was in the dorsal lithotomy position. Speculum was placed in the vagina and the cervix prepped with Betadine and the HSG catheter was easily introduced into the uterus and speculum removed. Radiologist was brought in and while pushing radiopaque dye into the uterus via the HSG catheter the radiologist took multiple images and views and confirmed bilateral tubes were not filling after multiple attepmps with 120cc of isovue. No gross uterine filling defects or abnormalities were seen. All instruments removed from the vagina and the uterus without complication. Patient tolerated the procedure well. Multi Select Codes Urinary/Genital Urinary/Genital CPT Codes: 28816 HSG/SIS
== END | disposition home or self-care (01) ==
LOC: RAD 07:48
PROVIDERS: PCP Nurse Practitioner Primary Care; Referring Provider Obstetrics & Gynecology; Visit Provider Obstetrics & Gynecology
DX: O03.9 Complete or unspecified spontaneous abortion without complication (principal)
CPT/HCPCS: 58340; 74740; Q9967

== ENCOUNTER → 2022-03-02 | Outpatient (CLI) | payer BC, SELFPAY ==
[2022-03-02 10:33] LABS: Absolute Lymphocyte Count 1.88 X10^3/uL (0.83-4.51); Absolute Neutrophil Count 4.1 X10^3/uL (2.0-7.7); Basophil# 0.06 X10^3/uL; Basophil% 0.9 % (0-1); Eosinophil# 0.11 X10^3/uL; Eosinophils% 1.6 % (0-5); Hematocrit 41.7 % (37-47); Hemoglobin 13.8 g/dL (12.0-15.0); Lymphocyte # 1.88 X10^3/ul (0.83-4.51); Lymphocyte % 28.1 % (19-41); Mean Corp Hgb Conc 33.1 g/dL (32-36); Mean Corpuscular Hgb 28.9 pg (27.0-32.0); Mean Corpuscular Volume 87.2 fL (81-99); Mean Platelet Vol. 9.8 fl (6.2-12.0); Monocyte# 0.54 X10^3/uL; Monocyte% 8.1 % (0-10); NRBC Flagged by Analyzer 0 % (0-5); Neutrophil # 4.08 X10^3/uL (2.7-7.7); Platelet Count 280 K/mm3 (150-450); RBC Distribution Width CV 12.4 % (11.6-14.6); RBC Distribution Width SD 39.8 fl (35.1-43.9); Red Blood Count 4.78 M/mm3 (4.2-5.4); White Blood Count 6.7 K/mm3 (4.4-11.0)
== END | disposition home or self-care (01) ==
LOC: LAB 09:36
PROVIDERS: PCP Nurse Practitioner Primary Care; Visit Provider Obstetrics & Gynecology
DX: Z01.818 Encounter for other preprocedural examination (principal)
CPT/HCPCS: 36415; 85025; 86850; 86900; 86901

== ENCOUNTER 2022-03-07 12:24 | Day surgery (SDC) | payer BC, SELFPAY ==
[2022-03-07] VITALS (7 sets, daily range): BP systolic 121–143; BP diastolic 81–109; PULSE 67–112; RESP 16–20; TEMP 36.1–36.4; O2SAT 95–100; BMI 46.5
--- NOTE | 2022-03-07 10:18 | HP.PCM_ITS ---
History and Physical Date of Admission: 03/07/22 Intake Vital Signs ? 05/17/2207:55 12/06/2207:54 12/07/2207:14 12/07/2207:16 Height 5 ft 5 in 5 ft 5 in 5 ft 5 in 5 ft 5 in Weight: ? 270 lb 273 lb 4 oz ? BMI ? 44.9 45.4 ? BP ? 122/85 H 115/75 ? Respiration ? 16 ? ? Pulse ? 86 ? ? Temp ? 97.6 F LB ? ? Pulse Oximetry (%) ? 98 ? ? 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 11/23/21 [History Confirmed 12/06/21] Post menopausal: No Patient : No : No PFSH Medical History? History of ectopic Surgical History? H/O wrist surgery History of salpingectomy History of surgery on left wrist S/P arthroscopy of left shoulder Family History? Grandmother Colon cancer Diabetes ?? ? [id number] CancerOther Endometriosis Epilepsy Social History? household members:? spouse Smoking Status:? Never smoker second hand exposure:? No alcohol intake:? current alcohol intake frequency: holidays/special occasions only substance use type:? does not use caffeine:? Yes what type of physical activity do you participate in:? walking seatbelt use:? always do you feel safe at home:? Yes additional social history:? -Tristin HPI Ectopic f/u Details: TRES QUINONEZ is a 31 year old who presents for a diagnostic laparoscopy with fallopian tube chromopertubation due to recent ectopic then finding of blocked fallopian tubes on HSG. There is a strong suspicion for endometriosis. Pregancy History ? ? ? 2 ? Elective abortions ? Hx Para ? ? ? 0 ? Spontaneous abortions ? Hx # Term Pregnancies ? Ectopic pregnancies ? ? ? 2 Hx # Pregnancies ? Multiple births ? # of living children ? ? ? 0 ROS Const ROS Unobtainable: All systems reviewed & are unremarkable except as noted in H Resp Resp: Reports system reviewed and no additional complaints, except as documented; Denies cough GI GI: Reports as per HPI Psych Psych: Reports system reviewed and no additional complaints, except as documented Exam Const General: cooperative, healthy appearing, comfortable and no acute distress Resp Effort & Inspection: normal respiratory effort Skin General: no rashes or lesions noted Psych Appearance: grossly normal Speech and Movement: speech and movement normal Coding Level of Care Code Off vis,est,level 3 Diagnoses Prior methotrexate therapy? Z92.21 Ectopic ? O00.90 Assessment and Plan Assessment and Plan (1)non -patent fallopian tubes on HSG- plan today for diagnostic laparoscopy with chromopertubation possible lysis of adhesions After discussing the patient's diagnosis and treatment plan options, patient wishes to proceed with surgical management. I have discussed with the patient the risks, benefits, and alternatives of the procedure which include but are not limited to risks of anesthesia, bleeding, infection, possible damage to bowel, bladder, or surrounding vasculature which could lead to additional surgery to evaluate any complications. Patient agrees to procedure and wishes to proceed. ACOG/uptodate references given for additional information regarding procedure. (2) Prior methotrexate therapy for Ectopic : ?Status:?Acute ?Comment:
[2022-03-07] MEDS: Doxycycline 100 MG CAPSULE PO (12:57)
[2022-03-07] MEDS: Lactated Ringers 1,000 ML 15 ML IV (13:00)
[2022-03-07 13:03] LABS: Internal QC Validated? YES +Cl - CLEAR BKGD; Pregnancy, Urine Negative Negative
--- NOTE | 2022-03-07 13:51 | PCM.DC ---
Discharge Instructions Diet Discharge Diet: No restrictions Activity Discharge Activity: Return to Normal Activity, May Not Drive (for two weeks or while taking narcotic pain medications.), May Shower and May Take a Tub Bath (in 7 days) May resume sexual activity in: 1 week Weight Bearing Status: Full weight bearing Dressing / Incision Call your doctor if you observe: Using more than 1 pad per hour, Shortness of breath, Chest pain and Uncontrolled pain Suture Line Care: Avoid Pulling/Pushing and Avoid Pinching/Bending Remove Dressing in: 1 week (if present) Cleanse incision/area with: Soap & Water and Keep Dressing Clean & Dry Follow Up Care Please Follow Up With: Alice Warner DO When: Call to make an appointment with your doctor for a follow up incision check in 1-2 weeks. Test Results: Test results from this visit will be discussed in further detail at your follow-up appointment, if applicable. Discharge Plan Admission Primary Reason for Your Visit: laparoscopy Attending Provider: Alice Warner Primary Care Provider: Sonia Green NP Discharge Orders/Prescriptions Prescriptions: New naproxen 250 mg tablet 500 mg PO Q8H PRN PRN (Reason: Mild Pain ) Qty: 30 0RF hydrocodone-acetaminophen 5-325 mg tablet 1 tab PO Q4H PRN (Reason: pain) 3 Days Qty: 10 0RF Referrals / Follow Up: Sonia Green NP, ADULT NEUROPSYCHOLOGIST-C [Primary Care Provider] - Disposition Disposition (needs filled in before D/C Order can be placed): Home, Self Care
--- NOTE | 2022-03-07 13:55 | PCM.OP.BLANK ---
Problems Associated Problem List Diagnoses (1) Amenorrhea: (2) Miscarriage: (3) Ectopic : (4) History of hysterosalpingogram: Operative Report Date of Procedure: 03/07/22 Pre-operative diagnosis : non-patent fallopian tubes on HSG, infertility Post-operative diagnosis:non-patent fallopian tubes on HSG, infertility surgery: laparoscopic chromopertubation surgeon: Dr. Alice Warner Do Flocculator Operator: CHRISSY Camacho EBL 30cc complications: none IV fluids: 1 liter crystalloid Patient was taken in the operating room and was placed under general anesthesia was prepped and draped in normal sterile fashion in the dorsal lithotomy position. Bladder was drained of clear urine and SCDs were on preoperatively. Uterus was sounded and a uterine manipulator was placed after dilating. Attention was then paid to the abdominal portion of the procedure and the umbilicus was elevated with towel clamps and injected with Marcaine and after a 5 mm incision was made and a 5 mm trocar was inserted into the abdomen under direct visualization of the laparoscope. The abdomen was insufflated with CO2 gas and a 5 mm optical trocar was placed under direct visualization. A left lower quadrant 5 mm port was also placed. Uterus was well visualized and right fallopian tube identified. There was noted to be a 2-3 cm fallopian tube cyst on the right ovary and when the methlylene blue was passed through the uterine manipulator it did not flow through the tube. It appeared that the dye was being blocked by the tubal cyst. The left tube was surgically absent and there was no flow from this side at all either. The patient's was called out in the waiting room to ask permission to remove the cyst and fallopian tube on the right and he declined stating that he did not want to make the decision to remove her last fallopian tube. The co2 gas ws then let out of the abdomen through the port sites and the trocars were removed. The skin was then closed with a 4-0 monocryl. Plan going forward is to consult with JUAN JOSE> pictures were taken of the procedure to take with them. Multi Select Codes Urinary/Genital Urinary/Genital CPT Codes: Other Procedure See Report (diagnostic laparoscopy, chromopertubation of fallopian tubes )
[2022-03-07] MEDS: Bupivacaine 0.25% 30 ML Vial (14:52)
== END 2022-03-07 17:25 | disposition home or self-care (01) ==
LOC: SDC 12:25 → AC 12:26
PROVIDERS: PCP Nurse Practitioner Primary Care; Referring Provider Obstetrics & Gynecology; Visit Provider Obstetrics & Gynecology
PROC: (CPT 49320; principal; 2022-03-07 13:45)
DX: N83.8 Other noninflammatory disorders of ovary, fallopian tube and broad ligament (principal); N97.9 Female infertility, unspecified; N91.2 Amenorrhea, unspecified
CPT/HCPCS: 49320; 00840; 81025; J7120; J2405

== ENCOUNTER → 2022-10-25 | Outpatient (CLI) | payer BC, SELFPAY ==
[2022-10-25 09:46] LABS: Vitamin D,25 Hydroxy 25.3 ng/mL
[2022-10-25 09:55] LABS: Cholesterol 204 mg/dL (200); Glucose 96 mg/dL (74-106); High Density Lipoprotein 45 mg/dL; Thyroid Stim Hormone (TSH) 2.02 uIU/mL (0.358-3.74); Triglycerides 233 mg/dL; Very Low Density Lipoprotein 47 mg/dL (5-40)
[2022-10-26 04:07] LABS: DHEA Sulfate 63.5 ug/dL (84.8-378.0); Thyroid Peroxidase AB < 9 IU/mL (0-34)
== END | disposition home or self-care (01) ==
LOC: PAVLAB 09:00
PROVIDERS: PCP Nurse Practitioner Primary Care; Referring Provider Obstetrics & Gynecology; Visit Provider Obstetrics & Gynecology
DX: N92.0 Excessive and frequent menstruation with regular cycle (principal); Z13.1 Encounter for screening for diabetes mellitus; Z13.220 Encounter for screening for lipoid disorders; Z13.21 Encounter for screening for nutritional disorder
CPT/HCPCS: 36415; 80061; 82306; 82627; 82947; 84443; 86376; 82626

== ENCOUNTER → 2023-02-06 | Outpatient (CLI) | payer BC, SELFPAY ==
--- NOTE | 2023-02-06 12:54 | US_ITS ---
EXAM: US PELVIS TRANSABDOMINAL AND TRANSVAGINAL, COMPLETE CLINICAL INDICATION: hydrosalpinx TECHNIQUE: Transabdominal and endovaginal pelvic ultrasound was performed with grayscale and color Doppler imaging. Endovaginal imaging was used for better evaluation of the endometrium and adnexa. COMPARISON: No relevant prior studies available. FINDINGS: UTERUS/CERVIX: Normal. The uterus measures 8.4 x 4.9 x 3.8 cm. The endometrial stripe measures 0.5 cm in thickness. RIGHT OVARY: Normal. Blood flow is present in the right ovary. The right ovary measures 3.9 x 3.0 x 2.2 cm. LEFT OVARY: Normal. Blood flow is present in the left ovary. The left ovary measures 2.7 x 2.8 x 2.0 cm. FREE FLUID: None. US/Pelvic w/ Transvaginal IMPRESSION: Normal pelvic ultrasound. Electronically Signed: Barrera Yoo MD at 17:02 EDT ,
== END | disposition home or self-care (01) ==
LOC: OPUS 12:52
PROVIDERS: PCP Nurse Practitioner Primary Care; Referring Provider Obstetrics & Gynecology; Visit Provider Obstetrics & Gynecology
DX: N70.11 Chronic salpingitis (principal)
CPT/HCPCS: 76830; 76856

== ENCOUNTER → 2024-02-04 | Outpatient (CLI) | payer OTHER, SELFPAY ==
[2024-02-09 08:12] LABS: HPV APTIMA, High Risk Negative (Negative)
== END | disposition home or self-care (01) ==
LOC: LABSPEC 14:27
PROVIDERS: PCP Nurse Practitioner Primary Care; Referring Provider Obstetrics & Gynecology; Visit Provider Obstetrics & Gynecology
DX: Z12.4 Encounter for screening for malignant neoplasm of cervix (principal)
CPT/HCPCS: 87624; 88175; G0145